=== PATIENT | male | born 1945 | race Caucasian/White ===

== ENCOUNTER → 2023-02-13 | Outpatient (CLI) | payer OTHER ==
[~2023-02-13] MED LIST: Adult Low Dose81 MG PO; Cleocin HCl300 MG PO; FINA5 PO; IBUP600 PO; METO25 PO; Omeprazole20 M1 PO; Percocet 5-3251 EACH PO; Pravastatin Sod40 MG PO; SERT100 PO
== END ==
LOC: PLD 12:12 → LAB SHORT 12:12 → LAB 12:12
DX: L57.0 Actinic keratosis (principal)
CPT/HCPCS: 88305

== ENCOUNTER 2023-09-21 18:58 | Observation (INO) | payer OTHER ==
[~2023-09-21] VITALS: Ht 177.8 cm; Wt 71.6 kg
[2023-09-21 19:10] LABS: Calcium, Ionized (POC) 1.08 mmol/L (1.10-1.46); Chloride (POC) 98 mmol/L (98-108); Creatinine (POC) 0.8 mg/dL (0.8-1.3); Glucose (ISTAT POC) 143 mg/dL (70-99); Hemoglobin (POC) 14.6 g/dL (13.5-17.5); Potassium (POC) 4.4 mmol/L (3.5-5.5); Sodium (POC) 134 mmol/L (135-148); Total CO2 (POC) 26 mmol/L (21-32)
[2023-09-21] MEDS ORDERED: NS 1,000 ML IV SCH ×2 (19:10→21:45)
[2023-09-21] MEDS ORDERED: levETIRAcetam 1,500 MG in NS 100 ML IV ONE (19:10)
[2023-09-21] MEDS ORDERED: Ondansetron HCl 2 MG / ML 2ML Vial IV ONE (19:10)
[2023-09-21 19:14] LABS: Base Excess Venous -2.9 mmol/L; PCO2 Venous 42.5 mmHg (38-42); pH Blood Venous 7.34 (7.34-7.37)
[2023-09-21] MEDS ORDERED: METOPROLOL SUCC25 MG PO (19:14)
[2023-09-21 19:20] LABS: BASOPHILS ABSOLUTE AUTO 0.07 K/mm3 (0.00-0.23); BASOPHILS PERCENT AUTO 1 % (0-2); EOSINOPHILS ABSOLUTE AUTO 0.21 K/mm3 (0.00-0.68); EOSINOPHILS PERCENT AUTO 3 % (0-6); Hematocrit 40.4 % (37.0-53.0); Hemoglobin 13.8 g/dL (13.5-17.5); IMMATURE GRAN ABSOLUTE AUTO 0.02 K/mm3 (0.00-0.10); IMMATURE GRAN PERCENT AUTO 0 % (0-1); LYMPHOCYTES ABSOLUTE AUTO 2.13 K/mm3 (0.84-5.20); LYMPHOCYTES PERCENT AUTO 26 % (21-46); MONOCYTES ABSOLUTE AUTO 0.55 K/mm3 (0.16-1.47); MONOCYTES PERCENT AUTO 7 % (4-13); Mean Corpuscular HGB 31.5 pg (26.0-34.0); Mean Corpuscular HGB Conc 34.2 g/dL (31.5-36.5); Mean Corpuscular Volume 92 fL (80-100); Mean Platelet Volume 9.7 fL (9.1-12.4); NEUTROPHILS ABSOLUTE AUTO 5.37 K/mm3 (1.96-9.15); NEUTROPHILS PERCENT AUTO 64 % (41-73); Platelet Count 189 K/mm3 (150-400); RDW Coefficient Variation 13.2 % (11.7-14.2); Red Blood Cell Count 4.38 M/mm3 (4.30-5.90); White Blood Cell Count 8.35 K/mm3 (4.00-11.30)
[2023-09-21 19:45] LABS: Albumin, Blood 3.8 g/dL (3.4-5.0); Bilirubin, Total 0.5 mg/dL (0.1-1.0); Bun/Creatinine Ratio 21.1 (12.0-20.0); Calcium, Blood 8.7 mg/dL (8.5-10.1); Creatinine, Blood 0.66 mg/dL (0.60-1.20); Globulin, Blood 3.7 g/dL (2.2-4.0); Potassium, Blood 4.4 mmol/L (3.5-5.5); Total Protein, Blood 7.5 g/dL (6.4-8.2)
[2023-09-21 19:55] LABS: Magnesium, Blood 1.8 mg/dL (1.6-2.4); Prolactin 51.6 ng/mL (2.5-17.4); Thyroid Stimulating Hormone 7.03 uIU/mL (0.360-4.800)
[2023-09-21] MEDS ORDERED: Acetaminophen 325 MG TABLET PO PRN (21:45)
[2023-09-21] MEDS ORDERED: LORazepam 2 MG/ML 1ML Injection IV PRN (21:45)
[2023-09-21] MEDS ORDERED: Ondansetron HCl 2 MG / ML 2ML Vial IV PRN (21:45)
[2023-09-21 23:44] LABS: Source, Urine Clean Catch
[2023-09-21 23:54] LABS: Bilirubin, Urine Neg (Neg); Blood, Urine 1+ (Neg); Glucose Qualitative, Urine Neg (Neg); Ketones, Urine Neg (Neg); Leukocyte Esterase, Urine Neg (Neg); Nitrite, Urine Neg (Neg); Protein, Urine 1+ (Neg); Urobilinogen, Urine NORM (Normal)
[2023-09-22 00:08] LABS: U Amphetamine Screen Not Detected; U Barbituate Screen Not Detected; U Benzodiazapine Screen Not Detected; U Buprenorphine Screen Not Detected; U Cannabinoids Screen Not Detected; U Cocaine Screen Not Detected; U Methadone Screen Not Detected; U Methamphetamine Screen Not Detected; U Opiates Screen Not Detected; U Oxycodone Screen Not Detected; U Phencyclidine Screen Not Detected
[2023-09-22 00:09] LABS: Appearance, Urine Clear (Clear); Color, Urine Yellow (P-Yellow)
[2023-09-22 00:10] LABS: Bacteria Few /hpf; Hyaline Casts 0-2 /lpf (0-2); Red Blood Cells, Urine 0-2 /hpf (0-2); Squamous Epithelial Cells Rare /hpf (Few); White Blood Cells, Urine 0-2 /hpf (0-5)
[2023-09-22] MEDS ORDERED: NS 1,000 ML IV ONE (05:43)
[2023-09-22 05:58] LABS: Hematocrit 37.7 % (37.0-53.0); Hemoglobin 12.9 g/dL (13.5-17.5); Mean Corpuscular HGB 31.5 pg (26.0-34.0); Mean Corpuscular HGB Conc 34.2 g/dL (31.5-36.5); Mean Corpuscular Volume 92 fL (80-100); Mean Platelet Volume 9.8 fL (9.1-12.4); Platelet Count 164 K/mm3 (150-400); RDW Coefficient Variation 13.2 % (11.7-14.2); Red Blood Cell Count 4.09 M/mm3 (4.30-5.90); White Blood Cell Count 8.43 K/mm3 (4.00-11.30)
[2023-09-22 06:12] LABS: Bun/Creatinine Ratio 20.6 (12.0-20.0); Calcium, Blood 8.5 mg/dL (8.5-10.1); Creatinine, Blood 0.58 mg/dL (0.60-1.20); Free Thyroxine 0.81 ng/dL (0.70-1.60); Magnesium, Blood 2.1 mg/dL (1.6-2.4); Potassium, Blood 4.4 mmol/L (3.5-5.5)
[2023-09-22 08:49] VITALS: BP 140/81
[2023-09-22] MEDS ORDERED: Enoxaparin 40 MG/0.4 ML SYR SC SCH (09:00)
[2023-09-22] MEDS ORDERED: levETIRAcetam 500 MG in NS 100 ML IV SCH (09:00)
[2023-09-22] MEDS ORDERED: VITAMIN D350 MC3 PO (10:01)
[2023-09-22] MEDS ORDERED: ASCO500 PO (10:02)
[2023-09-22] MEDS ORDERED: [UNRECOGNIZED DRUG - CODE] PO (10:03)
[2023-09-22 12:48] VITALS: BP 131/77
[2023-09-22 16:16] VITALS: BP 114/66
[2023-09-22] MEDS ORDERED: NS 1,000 ML IV SCH (17:00)
--- NOTE | 2023-09-22 18:12 | NUR ---
ADMISSION/SHIFT SUMMARY: PT IS A NEW ADMIT, ARRIVING FROM ER APPROX 0845 THIS AM, ASSISTED TO BED FROM [facility] VIA SLIDER SHEET. PT ARRIVES A&O TO SELF, LOCATION, MONTH/YR, SOME SITUATION. PT REPORTS MILD DIZZINESS WHEN AMBULATING (OVER THE PAST COUPLE WEEKS) AND JERKING MOVEMENTS TO BUE (OVER THE PAST FEW YEARS). NO SEIZURE-LIKE ACTIVITY THIS SHIFT. MRI COMPLETED, PT PENDING EEG. PT DENIES SOB, O2 SATS >93% ON RA. PT DENIES CP, SR ON MONITOR W/RATE 80s. PT HAS BEEN SBA W/FWW, PREFERS TO STAND FOR URINATION. FLUIDS INFUSING PER ORDERS. AT THIS TIME PT IS RESTING QUIETLY IN BED W/CALL LIGHT IN REACH. WILL CONTINUE TO MONITOR AND TREAT ACCORDINGLY UNTIL CHANGE OF SHIFT.
[2023-09-22 19:46] VITALS: BP 116/65
--- NOTE | 2023-09-22 21:26 | NUR ---
THIS RN TO ASSUME CARE AT APPROX 1915. PT RESTING IN BED WITH EVEN UNLABORED RESPIRATIONS. HE WAKES EASILY AND ANSWERES QUESTIONS APPROPRIATLEY. HE IS A/OX4. HE IS ON TELE IN NSR. DENIES CHEST PAIN/PRESSURE. HE IS ON RA WITH SPO2>90%. DENIES SOB. HE PULLED HIS LEFT AC IV, THE RIGHT AC IS PATENT WITH FLUIDS RUNNING PER MAR. PT DENIES PAIN. HE MOVES ALL EXTRIMITIES EQUALLY WITH NO NOTED DEFICITS. HE IS RESTING NOW WITH NO NEEDS STATED, CALL LIGHT IN REACH. WILL CONITNUE TO MONITOR AND PROVIDE CARE.
[2023-09-22 23:34] VITALS: BP 138/80
[2023-09-23 00:59] VITALS: BP 88/63
[2023-09-23 03:25] VITALS: BP 141/81
[2023-09-23 03:51] LABS: BASOPHILS ABSOLUTE AUTO 0.06 K/mm3 (0.00-0.23); BASOPHILS PERCENT AUTO 1 % (0-2); EOSINOPHILS ABSOLUTE AUTO 0.23 K/mm3 (0.00-0.68); EOSINOPHILS PERCENT AUTO 3 % (0-6); Hematocrit 36.1 % (37.0-53.0); Hemoglobin 12.1 g/dL (13.5-17.5); IMMATURE GRAN ABSOLUTE AUTO 0.03 K/mm3 (0.00-0.10); IMMATURE GRAN PERCENT AUTO 0 % (0-1); LYMPHOCYTES ABSOLUTE AUTO 1.43 K/mm3 (0.84-5.20); LYMPHOCYTES PERCENT AUTO 19 % (21-46); MONOCYTES PERCENT AUTO 7 % (4-13); Mean Corpuscular HGB 31.2 pg (26.0-34.0); Mean Corpuscular HGB Conc 33.5 g/dL (31.5-36.5); Mean Corpuscular Volume 93 fL (80-100); Mean Platelet Volume 9.8 fL (9.1-12.4); NEUTROPHILS ABSOLUTE AUTO 5.23 K/mm3 (1.96-9.15); NEUTROPHILS PERCENT AUTO 70 % (41-73); Platelet Count 147 K/mm3 (150-400); RDW Coefficient Variation 13.7 % (11.7-14.2); RDW Standard Deviation 46.5 fL (35.1-46.3); Red Blood Cell Count 3.88 M/mm3 (4.30-5.90); White Blood Cell Count 7.48 K/mm3 (4.00-11.30)
--- NOTE | 2023-09-23 04:03 | NUR ---
SHIFT NOTE: PT RESTING COMFORTABLY WITH EVEN UNLABORED RESPIRATIONS. PT PULLED R AC IV WHEN AMBULATING TO THE BATHROOM. PATIENT EDUCATED ON NEED TO WAIT FOR STAFF FOR SAFETY. NEW IV PLACED IN LEFT UPPER ARM. BED ALARM ON. PT HAS BEEN USING CALL LIGHT APPROPRIATELY. HE USES THE URINAL AT BEDSIDE WITH 1P ASSIST. HE IS ON TELE WITH NO ACUTE EVENTS OVERNIGHT. HE REMAINS ON RA WITH SPO2 >90%. DENIES SOB AND CHEST PAIN. NO SEIZURE ACTIVITY T/O SHIFT. WILL CONTINUE TO MONITOR AND REPORT TO ONCOMING RN
[2023-09-23 04:18] LABS: Magnesium, Blood 1.9 mg/dL (1.6-2.4)
[2023-09-23 04:19] LABS: Albumin, Blood 3.2 g/dL (3.4-5.0); Albumin/Globulin Ratio 0.9 (0.8-1.8); Bilirubin, Total 0.4 mg/dL (0.1-1.0); Bun/Creatinine Ratio 19.6 (12.0-20.0); Calcium, Blood 8.5 mg/dL (8.5-10.1); Creatinine, Blood 0.61 mg/dL (0.60-1.20); Globulin, Blood 3.4 g/dL (2.2-4.0); Phosphorus, Blood 3.2 mg/dL (2.5-4.9); Potassium, Blood 3.9 mmol/L (3.5-5.5); Total Protein, Blood 6.6 g/dL (6.4-8.2)
[2023-09-23] MEDS ORDERED: Levothyroxine Sodium 0.125 MG Tab PO SCH (06:00)
[2023-09-23 09:32] VITALS: BP 154/89
[2023-09-23] MEDS ORDERED: ACET325 PO (11:10)
[2023-09-23] MEDS ORDERED: LEVE500 PO (11:11)
[2023-09-23] MEDS ORDERED: LEVSOD25 PO (11:11)
[2023-09-23 11:36] VITALS: BP 144/81
--- NOTE | 2023-09-23 16:23 | NUR ---
Discharge Summary Pt alert, oriented, forgetful at times. 1 person assist with walker in room. Pt denies pain, chest pain/pressure, sob, nausea, dizziness and numb/tingling. No seizure activity noted during shift. Tele sinus, bp stable. Spo2 >90% on ra, breathing even and unlabored. Abd soft, nontender, +bt. No edema noted. Other vss. No other acute changes noted. Went over d/c instructions; when discussing medications pt states his will "look inot" the medications, referring to the keppra, and decide if he will take the medications or not. Educated pt on medications compliance, request a pharmacy that is open on sunday, pt request that staff calls spouse. Called spouse regarding pharamcy choices, spouse states that she isnt sure if the patient will be taking the medication at home due to the side effects and how the medications effected her brother, educated spouse of seizures and side effects of medication, plans to come in and speak with the doctor. Spouse at beside this evening, second facing baster with MD; when finished, pt leaving, spouse states he will not be taking the medication at home. Pt and family educated on discharge instructions, follow up appointment and medication. Medication faxed to [facility]. Pt left at 1522 via wheelchair.
== END 2023-09-23 15:22 | disposition home or self-care (01) ==
LOC: ER 18:58 → ERHOLD 18:59 → PCU 09-22 08:47
PROVIDERS: Hospitalist; Nurse Practitioner Acute Care; Student in an Organized Health Care Education/Training Program; ADMIT Internal Medicine
DX: G40.409 Other generalized epilepsy and epileptic syndromes, not intractable, without status epilepticus (principal); J84.9 Interstitial pulmonary disease, unspecified; E03.9 Hypothyroidism, unspecified; K21.9 Gastro-esophageal reflux disease without esophagitis; N40.0 Benign prostatic hyperplasia without lower urinary tract symptoms; E78.5 Hyperlipidemia, unspecified; I10 Essential (primary) hypertension; I25.10 Atherosclerotic heart disease of native coronary artery without angina pectoris; M54.50 Low back pain, unspecified; G89.29 Other chronic pain; G25.81 Restless legs syndrome; Z88.5 Allergy status to narcotic agent; Z79.890 Hormone replacement therapy; Z79.899 Other long term (current) drug therapy
CPT/HCPCS: 36415; 51701; 70450; 70551; 71045; 80047; 80048; 80053; 81001; 82803; 83605; 83735; 84100; 84146; 84439; 84443; 84484; 85014; 85025; 85027; 93005; 93010; 96361; 96365; 96366; 96372; 96374; 96375; 96376; 97110; 97161; 97530; 99285-25; A9270; G0378; J1650; J1953; J2405; J7030

== ENCOUNTER → 2024-06-27 | Outpatient (CLI) | payer OTHER ==
[~2024-06-27] MED LIST changes: +ACET325 PO; +ASCO500 PO; +LEVE500 PO; +LEVSOD25 PO; +METOPROLOL SUCC25 MG PO; +VITAMIN D350 MC3 PO; +[UNRECOGNIZED DRUG - CODE] PO
[2024-06-27 14:25] LABS: BASOPHILS ABSOLUTE AUTO 0.05 K/mm3 (0.00-0.23); BASOPHILS PERCENT AUTO 0 % (0-2); EOSINOPHILS ABSOLUTE AUTO 0.03 K/mm3 (0.00-0.68); EOSINOPHILS PERCENT AUTO 0 % (0-6); Hematocrit 41.5 % (37.0-53.0); Hemoglobin 14.3 g/dL (13.5-17.5); IMMATURE GRAN ABSOLUTE AUTO 0.04 K/mm3 (0.00-0.10); IMMATURE GRAN PERCENT AUTO 0 % (0-1); LYMPHOCYTES PERCENT AUTO 6 % (21-46); MONOCYTES ABSOLUTE AUTO 0.52 K/mm3 (0.16-1.47); MONOCYTES PERCENT AUTO 5 % (4-13); Mean Corpuscular HGB 31.6 pg (26.0-34.0); Mean Corpuscular HGB Conc 34.5 g/dL (31.5-36.5); Mean Corpuscular Volume 92 fL (80-100); Mean Platelet Volume 9.7 fL (9.1-12.4); NEUTROPHILS ABSOLUTE AUTO 9.84 K/mm3 (1.96-9.15); NEUTROPHILS PERCENT AUTO 88 % (41-73); Platelet Count 205 K/mm3 (150-400); RDW Coefficient Variation 12.8 % (11.7-14.2); RDW Standard Deviation 43.1 fL (35.1-46.3); Red Blood Cell Count 4.52 M/mm3 (4.30-5.90); White Blood Cell Count 11.18 K/mm3 (4.00-11.30)
[2024-06-27 14:34] LABS: Albumin, Blood 3.8 g/dL (3.4-5.0); Albumin/Globulin Ratio 0.9 (0.8-1.8); Bilirubin, Total 0.8 mg/dL (0.1-1.0); Bun/Creatinine Ratio 11.8 (12.0-20.0); Calcium, Blood 9.5 mg/dL (8.5-10.1); Creatinine, Blood 0.85 mg/dL (0.60-1.20); Globulin, Blood 4.4 g/dL (2.2-4.0); Potassium, Blood 4.6 mmol/L (3.5-5.5); Total Protein, Blood 8.2 g/dL (6.4-8.2)
== END | disposition home or self-care (01) ==
LOC: LAB 14:20 → LAB SHORT 14:20
PROVIDERS: Physician Assistant
DX: R07.9 Chest pain, unspecified (principal)
CPT/HCPCS: 80053; 84484; 85025; 85379